=== PATIENT | male | born 1990 | race Native Hawaiian/Other Pacific Islander ===

== ENCOUNTER 2019-12-04 17:17 | Emergency (ER) | payer OTHER ==
[~2019-12-04] VITALS: Ht 188 cm; Wt 104.3 kg
[2019-12-04 17:44] LABS: PLATELET COUNT 215 K/uL (142-355)
[2019-12-04 17:45] LABS: POTASSIUM 3.3 mmol/L (3.6-5.2)
[2019-12-04 18:02] LABS: PARTIAL THROMBOPLASTIN TIME 25.3 SECONDS (24.5-33.6)
[2019-12-04 21:09] VITALS: BP 108/66; TEMP 98.2
== END 2019-12-04 20:10 | disposition short-term general hospital (02) ==
LOC: ED 17:17
PROVIDERS: Hospitalist
PROC: 0T9B70Z Drainage of Bladder with Drainage Device, Via Natural or Artificial Opening (ICD-10-PCS; principal; 2019-12-04)
PROC: 0D9670Z Drainage of Stomach with Drainage Device, Via Natural or Artificial Opening (ICD-10-PCS; 2019-12-04)
PROC: 30233N1 Transfusion of Nonautologous Red Blood Cells into Peripheral Vein, Percutaneous Approach (ICD-10-PCS; 2019-12-04)
DX: S36.09XA Other injury of spleen, initial encounter (principal); S32.89XA Fracture of other parts of pelvis, initial encounter for closed fracture; S22.42XA Multiple fractures of ribs, left side, initial encounter for closed fracture; V49.40XA Driver injured in collision with unspecified motor vehicles in traffic accident, initial encounter; Y92.89 Other specified places as the place of occurrence of the external cause
CPT/HCPCS: 36430; 51702; 80048; 80307; 80320; 81000; 85027; 85610; 85730; 86850; 86900; 86901; 86922; 96361; 96365; 96375; 99285; J1885; J2405; J2543; P9016

== ENCOUNTER 2021-07-15 16:32 | Emergency (ER) | payer OTHER ==
[~2021-07-15] VITALS: Ht 188 cm; Wt 104.3 kg
[2021-07-15 16:36] VITALS: BP 104/62; TEMP 99.5
== END 2021-07-15 17:33 | disposition home or self-care (01) ==
LOC: ED 16:32
PROC: 0HQGXZZ Repair Left Hand Skin, External Approach (ICD-10-PCS; principal; 2021-07-15)
DX: S61.412A Laceration without foreign body of left hand, initial encounter (principal); W54.0XXA Bitten by dog, initial encounter; Y92.89 Other specified places as the place of occurrence of the external cause
CPT/HCPCS: 90715; 96372; 99283; J0690; J1885; J7040